=== PATIENT | female | born 1990 | race Caucasian/White ===

== ENCOUNTER 2020-12-12 05:58 | Inpatient (IN) ==
[2020-12-12] MEDS ORDERED: Lidocaine 1% 20 ML MDV INFILT PRN (06:08)
[2020-12-12] MEDS ORDERED: Naloxone 0.4 MG/ML INJ IVP PRN (06:08)
[2020-12-12] MEDS ORDERED: Ondansetron 4 MG/2 ML VIAL IVP PRN (06:08)
[2020-12-12] MEDS ORDERED: Metoclopramide 10 MG/2 ML VIAL IVP PRN (06:08)
[2020-12-12] MEDS ORDERED: Famotidine 20 MG/2 ML VIAL IVP PRN (06:08)
[2020-12-12] MEDS ORDERED: *HR* Nalbuphine 10 MG/ML AMPUL IV PRN (06:08)
[2020-12-12] MEDS ORDERED: Penicillin G Potassium 5,000,000 UNIT in 0.9 % Sodium Chloride Mini Bag 100 ML IVPB ONE (06:13)
[2020-12-12] MEDS ORDERED: miSOPROStoL 25 MCG TABLET PO PRN (06:19)
[2020-12-12] MEDS: Ringers Solution, Lactated 1,000 ML IVC SCH ×2 (06:38→15:50)
[2020-12-12 06:51] LABS: Basophils % 0.2 %; Eosinophils # 0.1 K/mcL (0.0-0.6); Eosinophils % 2.1 %; Hematocrit 35.6 % (35.3-44.9); Immature Granulocytes % 1.4 % (0-4); Lymphocytes # 1.1 K/mcL (0.6-4.6); Mean Corpuscular HGB Conc 33.7 g/dL (31.6-35.5); Mean Corpuscular Hemoglobin 30.4 pg (28.0-33.3); Mean Corpuscular Volume 90.1 fL (83.0-100.0); Mean Platelet Volume 9.6 fL (9.4-12.4); Monocytes # 0.7 K/mcL (0.0-1.3); Monocytes % 9.8 %; Neutrophils # 4.7 K/mcL (1.6-8.9); Platelet Count 230 K/mcL (140-400); Red Blood Count 3.95 M/mcL (3.82-4.97); Red Cell Distribution Width 13.8 % (11.5-14.5); Segmented Neutrophils % 70.5 %; White Blood Count 6.6 K/mcL (4.3-11.1)
[2020-12-12] MEDS ORDERED: EPHEDrine 50 MG/ML VIAL IVP PRN (07:02)
[2020-12-12] MEDS ORDERED: Epidural Premix (fent/bupiv) 110 ML EP SCH (07:15)
[2020-12-12 07:41] LABS: Adenovirus Not Detected (Not Detect); Bordetella Pertussis Not Detected (Not Detect); Chlamydophila pneumoniae Not Detected (Not Detect); Coronavirus 229E Not Detected (Not Detect); Coronavirus HKU1 Not Detected (Not Detect); Coronavirus NL63 Not Detected (Not Detect); Coronavirus OC43 Not Detected (Not Detect); Human Metapneumovirus Not Detected (Not Detect); Human Rhinovirus/Enterovirus Not Detected (Not Detect); Influenza A Subtype 2009 H1 Not Detected (Not Detect); Influenza B Not Detected (Not Detect); Mycoplasma pneumoniae Not Detected (Not Detect); Parainfluenza Virus 1 Not Detected (Not Detect); Parainfluenza Virus 2 Not Detected (Not Detect); Parainfluenza Virus 3 Not Detected (Not Detect); Parainfluenza Virus 4 Not Detected (Not Detect); Respiratory Syncytial Virus Not Detected (Not Detect); SARS-CoV-2 Not Detected (Not Detect)
[2020-12-12 09:21] LABS: Amphetamine Screen,Urine Negative ng/mL (Cutoff=1000); Barbiturate Screen,Urine Negative ng/mL (Cutoff=200); Benzodiazepines Screen,Urine Negative ng/mL (Cutoff=200); Cannabinoid Screen,Urine Negative ng/mL (Cutoff = 50); Cocaine Screen,Urine Negative ng/mL (Cutoff= 300); Opiate Screen,Urine Negative ng/mL (Cutoff=300); Phencyclidine Screen,Urine Negative ng/mL (Cutoff=25)
[2020-12-12] MEDS: Penicillin G Potassium 2,500,000 UNIT/105 ML MLS IVPB SCH ×2 (10:36→14:55)
[2020-12-12] MEDS ORDERED: Oxytocin 20 units/ LR 1000 mL 20 UNIT/1,000 ML BAG IVC SCH ×2 (12:30→19:42)
[2020-12-12] MEDS ORDERED: Famotidine 20 MG/2 ML VIAL IVP ONE (16:21)
[2020-12-12] MEDS ORDERED: Lanolin 7 G OINT...G. TP PRN (19:42)
[2020-12-12] MEDS ORDERED: Rho Immune Globulin 1,500 UNIT SYRINGE IM PRN (19:42)
[2020-12-12] MEDS ORDERED: Ibuprofen 600 MG TABLET PO PRN (19:42)
[2020-12-12] MEDS ORDERED: Acetaminophen 325 MG TABLET PO PRN (19:42)
[2020-12-12] MEDS ORDERED: Benzocaine/Menthol 56 GM AEROSOL SPRAY TP PRN (19:42)
[2020-12-12] MEDS ORDERED: *HR* HYDROcodone/Acet 5/325 mg TABLET PO PRN (19:42)
[2020-12-13] MEDS ORDERED: Prenatal Vit/FA 1 EACH TABLET PO SCH (09:00)
[2020-12-13 16:28] VITALS: BP 122/82
== END 2020-12-13 19:30 | disposition home or self-care (01) | DRG 807 ==
LOC: 1NENULAB 05:58 → 1NENUOBS 21:31
PROVIDERS: ADMIT Advanced Practice Midwife; ATTEND Advanced Practice Midwife